=== PATIENT | female | born 1930 | race Caucasian/White ===

== ENCOUNTER → 2016-11-01 | Outpatient (CLI) | payer MEDICARE, BC ==
[~2016-11-01] MED LIST: ALPRAZOLAM0.25 MG PO; ATROVENT0.5 MG/2.5 INH; BENTYL20 MG PO; CARAFATE1 GM PO; CLOPIDOGREL75 MG PO; COREG6.25 MG PO; CYMBALTA30 MG PO; DUONEB 3.0-0.5 M3 ML INH; HALFPRIN81 MG PO; K-SOL20 MEQ/15 PO; KLOR-CON M2020 MEQ PO; LASIX20 MG PO; LEVAQUIN500 MG PO; MIRALAX17 GM PO; MORPHINE O10 MG/0.5 PO; NITROSTAT0.4 MG SL; NORCO 325-5 MG1 TAB PO; PLAQUENIL200 MG PO; PREDNISONE1 MG PO; PREDNISONE10 MG PO; PRILOSEC40 MG PO; SYNTHROID25 MCG PO; ULTRAM50 MG PO; XANAX0.25 MG PO
== END | disposition short-term general hospital (02) ==
LOC: CLRHEU 10:13
DX: M32.9 Systemic lupus erythematosus, unspecified (principal); I73.00 Raynaud's syndrome without gangrene; N18.9 Chronic kidney disease, unspecified